=== PATIENT | female | born 1935 | race Caucasian/White ===

== ENCOUNTER 2021-08-17 01:01 | Inpatient (IN) | payer OTHER ==
[~2021-08-17] VITALS: Ht 170.2 cm; Wt 53.7 kg
[2021-08-17 03:12] LABS: BASOPHIL 0.6 % (0-2); EOSINOPHIL 0.6 % (0-7); HCT 32.4 % (37.0-47.0); LYMPHOCYTE 11.5 % (15-48); MCH 28.2 pg (25.0-31.0); MCHC 30.9 g/dL (32.0-36.0); MCV 91.5 fL (78.0-100.0); MONOCYTE 6.6 % (0-12); MPV 9.6 fL (6.0-9.5); NEUTROPHIL 80.2 % (41-80); NRBC 0; PLT 269 K/uL (150-400); RBC 3.54 M/uL (4.20-5.40); RDW 14.5 % (11.5-14.0); WBC 8.5 K/uL (4.0-10.5)
[2021-08-17 03:19] LABS: INR 1.11 (0.9-1.2); PROTHROMBIN TIME 13.7 SECONDS (11.8-13.4); PTT 23.3 SECONDS (24.4-34.7)
[2021-08-17 03:27] LABS: ALBUMIN 2.2 g/dL (3.4-5.0); BILIRUBIN - TOTAL 0.2 mg/dL (0.2-1.0); CREATININE 0.79 mg/dL (0.51-0.95); GLOBULIN (CALCULATION) 5.7 g/dL; POTASSIUM 3.9 mmol/L (3.5-5.1); TOTAL PROTEIN 7.9 g/dL (6.4-8.2)
[2021-08-17 04:56] LABS: BILIRUBIN NEGATIVE (NEGATIVE); BLOOD NEGATIVE Ery/uL (NEGATIVE); CLARITY CLEAR (CLEAR); COLOR YELLOW (YELLOW); GLUCOSE (U) NORMAL (NORMAL); LEUKOCYTES NEGATIVE Leu/uL (NEGATIVE); NITRITE NEGATIVE (NEGATIVE); PROTEIN 1+ mg/dL (NEGATIVE); SPECIFIC GRAVITY >=1.030 (1.001-1.030); UROBILINOGEN 0.2 mg/dL (0.2-1.0)
[2021-08-17 05:03] LABS: AMORPHOUS URATES CRYSTALS TRACE; SQUAMOUS EPITHELIAL CELLS RARE
[2021-08-17 16:39] LABS: RETICULOCYTE COUNT 1.3 % (1.0-2.0)
[2021-08-17 16:47] LABS: IRON % SATURATION 15.6 %SAT (20-50)
[2021-08-17 17:14] LABS: FOLIC ACID (SERUM) 11.3 ng/mL (8.6-58.9)
[2021-08-18 06:15] LABS: BASOPHIL 0.5 % (0-2); HCT 29.1 % (37.0-47.0); HGB 9.2 g/dl (12.5-16.0); LYMPHOCYTE 15.2 % (15-48); MCH 28.4 pg (25.0-31.0); MCHC 31.6 g/dL (32.0-36.0); MCV 89.8 fL (78.0-100.0); MONOCYTE 5.9 % (0-12); NEUTROPHIL 75.1 % (41-80); NRBC 0; PLT 219 K/uL (150-400); RBC 3.24 M/uL (4.20-5.40); RDW 14.1 % (11.5-14.0); WBC 8.6 K/uL (4.0-10.5)
[2021-08-18 06:23] LABS: ALBUMIN 1.8 g/dL (3.4-5.0); BILIRUBIN - TOTAL 0.4 mg/dL (0.2-1.0); BUN/CREAT RATIO (CALC) 25.7 RATIO; CREATININE 0.74 mg/dL (0.51-0.95); GLOBULIN (CALCULATION) 4.9 g/dL; MAGNESIUM 1.6 mg/dL (1.8-2.4); POTASSIUM 3.9 mmol/L (3.5-5.1); TOTAL PROTEIN 6.7 g/dL (6.4-8.2)
--- NOTE | 2021-08-18 13:28 | NUR ---
SPOKE WITH MEGAN. SHE WANTS TO CONTINUE WITH HOSPICE. HOSPICE IS TO DELIVER A HOSPITAL BED AND TRANSPORT CHAIR THIS DATE. ADVISED MEGAN THAT DR. LYONS FEELS PT SHOULD BE TRANSPORTED BY EMS. BUT, SHE WILL HAVE TO SIGN AN ABN TO SECURE PAYMENT FOR EMS. MEGAN WAS UNDERSTANDING OF AND AGREED TO THIS INFORMATION. TC JOHANA ÁLVAREZ. ADVISED HER OF THE DISCHARGE THIS DATE. SHE REQUESTED THAT HOSPICE BE CALLED UPON DISCHARGE AT [phone]. ADVISED CYNDY JOSE AND DR. LYONS.
[2021-08-18] MEDS ORDERED: OXYCODONE-ACET1 EAC1 PO (13:47)
[2021-08-18] MEDS ORDERED: ONDANSETRON ODT4 MG PO (13:47)
== END 2021-08-18 16:00 | disposition hospice, home (50) | DRG 481 ==
LOC: FER 01:01 → FMS 04:17
PROVIDERS: Emergency Medicine Emergency Medical Services; Orthopaedic Surgery; ADMIT Internal Medicine
PROC: 0QS604Z Reposition Right Upper Femur with Internal Fixation Device, Open Approach (ICD-10-PCS; principal; 2021-08-17 11:00)
DX: S72.141A Displaced intertrochanteric fracture of right femur, initial encounter for closed fracture (principal); C90.00 Multiple myeloma not having achieved remission; C34.12 Malignant neoplasm of upper lobe, left bronchus or lung; C77.1 Secondary and unspecified malignant neoplasm of intrathoracic lymph nodes; Z20.822 Contact with and (suspected) exposure to COVID-19; F03.90 Unspecified dementia, unspecified severity, without behavioral disturbance, psychotic disturbance, mood disturbance, and anxiety; I10 Essential (primary) hypertension; Z66 Do not resuscitate; Z51.5 Encounter for palliative care; E03.9 Hypothyroidism, unspecified; M19.90 Unspecified osteoarthritis, unspecified site; W08.XXXA Fall from other furniture, initial encounter; Z90.2 Acquired absence of lung [part of]; Y92.009 Unspecified place in unspecified non-institutional (private) residence as the place of occurrence of the external cause; Z90.710 Acquired absence of both cervix and uterus; Z90.49 Acquired absence of other specified parts of digestive tract; Z87.891 Personal history of nicotine dependence
CPT/HCPCS: 36415; 70450; 72125; 72170; 73501; 73552; 80053; 81001; 82607; 82746; 83540; 83550; 83735; 85025; 85610; 85730; 87076; 87088; 93005; 94010; 94762; C1713; J0697; J1170; J2060; J2270; J2405; J2704; J2916; J3010; J3360; J3420; J7030; J7120; U0002